=== PATIENT | female | born 1995 | race Caucasian/White ===

== ENCOUNTER 2019-01-09 10:59 | Emergency (ER) | payer MEDICAID ==
[2019-01-09] MEDS ORDERED: Sodium Chloride 0.9% 1,000 ML IV STA (11:12)
[2019-01-09 11:28] VITALS: O2SAT 100
[2019-01-09 11:44] LABS: BASO % 0.3 % (0.0-2.0); EOS # 0.1 K/uL (0.0-0.7); EOS % 1.8 % (0.0-4.0); HEMOGLOBIN 12.6 g/dL (11.0-16.0); LYMPH # 1.9 K/uL (1.0-4.3); LYMPH % 44.1 % (20.0-40.0); MEAN CELL VOLUME 86.9 fL (81.0-99.0); MEAN CORPUSCULAR HEMOGLOBIN 28.5 pg (27.0-31.0); MEAN CORPUSCULAR HGB CONC 32.8 g/dL (33.0-37.0); MEAN PLATELET VOLUME 9.4 fL (7.2-11.7); MONO # 0.5 K/uL (0.0-0.8); MONO % 11.6 % (0.0-10.0); NEUT # 1.8 K/uL (1.8-7.0); NEUT % 42.2 % (50.0-75.0); NRBC % 0.1 % (0.0-2.0); RBC 4.41 Mil/uL (3.80-5.20); RED CELL DISTRIBUTION WIDTH 12.8 % (11.5-14.5); WHITE BLOOD COUNT 4.4 K/uL (4.8-10.8)
[2019-01-09 11:57] LABS: ALB/GLOB RATIO 1.3 (1.0-2.1); ALBUMIN 4.5 g/dL (3.5-5.0); ALT/SGPT 10 U/L (9-52); AST/SGOT 24 U/L (14-36); BLOOD UREA NITROGEN 13 mg/dL (7-17); CALCIUM 9.3 mg/dl (8.6-10.4); GFR NON-AFRICAN AMERICAN > 60
[2019-01-09] MEDS ORDERED: Potassium Chloride 20 mEq/15 ml LIQ UD PO STA (12:22)
[2019-01-09] MEDS ORDERED: Potassium Chloride 20 mEq ER Tab PO ONE (12:31)
[2019-01-09] MEDS ORDERED: Lactated Ringer's 1,000 ML IV ONE (12:32)
[2019-01-09 12:34] LABS: HCG,QUALITATIVE URINE NEGATIVE (NEGATIVE)
[2019-01-09 12:35] LABS: SQUAMOUS EPITHIAL 1 /hpf (0-5)
[2019-01-09 12:37] LABS: URINE BILIRUBIN NEGATIVE (NEGATIVE); URINE BLOOD NEGATIVE (NEGATIVE); URINE CLARITY Clear (Clear); URINE COLOR YELLOW (YELLOW); URINE GLUCOSE (UA) NEGATIVE (Normal)
[2019-01-09 12:38] LABS: URINE LEUKOCYTE ESTERASE NEGATIVE Leu/uL (Negative); URINE PROTEIN NEGATIVE (NEGATIVE); URINE UROBILINOGEN 0.2 mg/dL (0.2-1.0)
--- NOTE | 2019-01-09 13:06 | C.PDOC ---
History Of Present Illness 23 y/o female presents to ED complaining of dizziness since this morning, associated with palpitations. Patient denies any nausea, vomiting, or blurry visions. Patient states she had some arrhythmia a few weeks ago and was given a heart monitor by her PMD that she used for the last 2 weeks. Reports she stopped 2 days ago, but hasnt seen her doctor yet. Patient has no other complaints. Time Seen by Provider: 01/09/19 11:00 Chief Complaint (Nursing): Dizziness/Lightheaded History Per: Patient History/Exam Limitations: no limitations Onset/Duration Of Symptoms: Hrs Current Symptoms Are (Timing): Still Present Past Medical History Reviewed: Historical Data, Nursing Documentation, Vital Signs Vital Signs: Last Vital Signs Temp 98 F 01/09/19 11:20 Pulse 100 H 01/09/19 11:20 Resp 16 01/09/19 11:20 BP 126/87 01/09/19 11:20 Pulse Ox 100 01/09/19 11:20 Family History: States: No Known Family Hx - Social History Hx Alcohol Use: Yes Hx Substance Use: No - Immunization History Hx Tetanus Toxoid Vaccination: No Hx Influenza Vaccination: No Hx Pneumococcal Vaccination: No Review Of Systems Except As Marked, All Systems Reviewed And Found Negative. Constitutional: Negative for: Fever, Chills Eyes: Negative for: Vision Change Cardiovascular: Positive for: Palpitations Respiratory: Negative for: Cough, Shortness of Breath Gastrointestinal: Negative for: Nausea, Vomiting Neurological: Positive for: Dizziness. Negative for: Weakness, Numbness Physical Exam - Physical Exam Appears: Non-toxic, No Acute Distress Skin: Warm, Dry Head: Atraumatic, Normacephalic Eye(s): bilateral: Normal Inspection Oral Mucosa: Moist Neck: Supple Chest: Symmetrical Cardiovascular: Rhythm Regular, No Murmur Respiratory: Normal Breath Sounds, No Rales, No Rhonchi, No Wheezing Gastrointestinal/Abdominal: Soft, No Tenderness Extremity: Bilateral: Atraumatic, Normal ROM Neurological/Psych: Oriented x3, Normal Speech, Normal Cognition ED Course And Treatment - Laboratory Results Result Diagrams: 01/09/19 11:41 01/09/19 11:41 Lab Results: Total Bilirubin 0.3 mg/dL (0.2-1.3) 01/09/19 11:41 AST 24 U/L (14-36) 01/09/19 11:41 ALT 10 U/L (9-52) 01/09/19 11:41 Alkaline Phosphatase 91 U/L (38-126) 01/09/19 11:41 Total Protein 7.8 g/dL (6.3-8.3) 01/09/19 11:41 Albumin 4.5 g/dL (3.5-5.0) 01/09/19 11:41 Globulin 3.3 gm/dL (2.2-3.9) 01/09/19 11:41 Albumin/Globulin Ratio 1.3 (1.0-2.1) 01/09/19 11:41 Urine Color Yellow (YELLOW) 01/09/19 12:21 Urine Clarity Clear (Clear) 01/09/19 12:21 Urine pH 6.0 (5.0-8.0) 01/09/19 12:21 Ur Specific [place] > 1.030 (1.003-1.030) H 01/09/19 12:21 Urine Protein Negative mg/dL (NEGATIVE) 01/09/19 12:21 Urine Glucose (UA) Negative mg/dL (Normal) 01/09/19 12:21 Urine Ketones Negative mg/dL (NEGATIVE) 01/09/19 12:21 Urine Blood Negative (NEGATIVE) 01/09/19 12:21 Urine Nitrate Negative (NEGATIVE) 01/09/19 12:21 Urine Bilirubin Negative (NEGATIVE) 01/09/19 12:21 Urine Urobilinogen 0.2 mg/dL (0.2-1.0) 01/09/19 12:21 Ur Leukocyte Esterase Negative Sarah/uL (Negative) 01/09/19 12:21 Urine WBC (Auto) < 1 /hpf (0-5) 01/09/19 12:21 Urine RBC (Auto) 1 /hpf (0-3) 01/09/19 12:21 Ur Squamous Epith Cells 1 /hpf (0-5) 01/09/19 12:21 Urine HCG, Qual Negative (NEGATIVE) 01/09/19 12:21 Urine HCG, Qual Negative (NEGATIVE) 01/09/19 12:21 ECG: Interpreted By Me, Viewed By Me ECG Rhythm: Sinus Rhythm, 1st Degree HB Rate From EC O2 Sat by Pulse Oximetry: 100 (RA) Pulse Ox Interpretation: Normal Progress Note: EKG, labs, and UA ordered. Patient was given IV fluids, zofran, and potassium chloride. On re-evaluation patient feels better and is stable to be d/c home with PMD follow up. Disposition - Disposition Disposition: HOME/ ROUTINE Disposition Time: 14:26 Condition: STABLE Additional Instructions: Follow up with your PMD and Tubular Splitting Machine Tender within 1-2 days. Return to ED immediate ly if feel worse. Instructions: Dizziness, Nonvertigo, (DC) Forms: [employer] (Serbian) - Clinical Impression Clinical Impression: Dizziness - PA / AIR PUMPER / Resident Statement MD/DO has reviewed & agrees with the documentation as recorded. - Scribe Statement The provider has reviewed the documentation as recorded by the Scribe Jerica Snell All medical record entries made by the Clausibdanielle were at my direction and personally dictated by me. I have reviewed the chart and agree that the record accurately reflects my personal performance of the history, physical exam, medical decision making, and the department course for this patient. I have also personally directed, reviewed, and agree with the discharge instructions and disposition.
[2019-01-09 14:44] VITALS: BP 116/76; PULSE 81; RESP 18; TEMP 98.1
--- NOTE | 2019-01-11 20:45 | CARD ---
APPROVED REPORT Date of service: 01/09/2019 EKG Measurement Heart [id number] <Conclusion> Sinus rhythm with 1st degree AV block Otherwise normal ECG
== END 2019-01-09 14:41 | disposition home or self-care (01) ==
LOC: C.ER 10:59
DX: R42 Dizziness and giddiness (principal)
CPT/HCPCS: 80053; 81001; 84703; 85025; 93005; 96361; 96374; 99285; J2405; J7030; J7120